=== PATIENT | male | born 1990 | race Caucasian/White ===

== ENCOUNTER 2016-06-02 16:37 | Emergency (ER) | payer OTHER ==
[~2016-06-02] VITALS: Ht 175.3 cm; Wt 68.0 kg
[2016-06-02 16:41] VITALS: BP 120/74
[2016-06-02] MEDS ORDERED: IBUPROFEN 600600 M1 PO (17:06)
== END 2016-06-02 17:14 | disposition home or self-care (01) ==
LOC: ER 16:37
DX: M70.862 Other soft tissue disorders related to use, overuse and pressure, left lower leg (principal); M70.861 Other soft tissue disorders related to use, overuse and pressure, right lower leg; Y93.89 Activity, other specified; F10.99 Alcohol use, unspecified with unspecified alcohol-induced disorder

== ENCOUNTER 2020-03-29 03:53 | Emergency (ER) | payer OTHER ==
[~2020-03-29] VITALS: Ht 167.6 cm; Wt 68.0 kg
[~2020-03-29 03:53] MED LIST: IBUPROFEN 600600 M1 PO
[2020-03-29 04:19] VITALS: BP 132/77
== END 2020-03-29 04:20 | disposition home or self-care (01) ==
LOC: ER 03:53
DX: R53.83 Other fatigue (principal); Z79.1 Long term (current) use of non-steroidal anti-inflammatories (NSAID)